=== PATIENT | female | born 1990 | race Two or more races ===

== ENCOUNTER 2018-06-11 01:22 | Emergency (ER) | payer MEDICAID ==
[~2018-06-11] VITALS: Ht 157.5 cm; Wt 74.8 kg
[2018-06-11 01:30] VITALS: BP 109/68
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
[2018-06-11] MEDS ORDERED: IBUPROFEN600 MG ORAL (02:26)
[2018-06-11 02:50] VITALS: BP 109/68
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
== END 2018-06-11 02:50 | disposition home or self-care (01) ==
LOC: EMR 02:00
DX: S30.0XXA Contusion of lower back and pelvis, initial encounter (principal); Y04.8XXA Assault by other bodily force, initial encounter; Y92.9 Unspecified place or not applicable; M25.522 Pain in left elbow
CPT/HCPCS: 72020; 99283